=== PATIENT | female | born 1945 | race Caucasian/White ===

== ENCOUNTER 2024-02-25 15:50 | Inpatient (IN) | payer MEDICARE ==
[2024-02-25] MEDS: Ondansetron 4 MG/2 ML SDV IVPUSH ONE (16:53)
[2024-02-25] MEDS: Morphine 4 MG/ML Syringe IVPUSH ONE (16:55)
[2024-02-25 17:14] LABS: WHITE BLOOD CELL COUNT,WBC 12.9 K/uL (3.2-11.0)
[2024-02-25 17:15] LABS: HEMOGLOBIN 14.2 g/dL (11.2-15.5)
[2024-02-25 17:16] LABS: PLATELET COUNT,PLT 261 K/uL (130-375)
[2024-02-25 17:18] LABS: BAND ABSOLUTE MAN 0.26 K/uL; BAND PERCENT MAN 2 % (5-11); LYMPHOCYTES PERCENT MAN 24 % (24-44); MONOCYTES ABSOLUTE MAN 0.77 K/uL (0.20-0.90); MONOCYTES PERCENT MAN 6 % (2-6); NEUTROPHILS ABSOLUTE MAN 8.77 K/uL (1.0-7.6); SEG NEUTROPHILS PERCENT MAN 68 % (36-66)
[2024-02-25 17:19] LABS: A/G RATIO 0.7 (1.2-2.2); ALANINE AMINOTRANSFERASE,ALT 38 U/L (12-78); ALKALINE PHOSPHATASE 60 U/L (46-116); AMYLASE 85 U/L (25-115); ASPARTATE AMNIOTRANSFERASE,AST 21 U/L (15-37); BILIRUBIN TOTAL 0.2 mg/dL (0.2-1.0); CALCIUM 7.9 mg/dL (8.5-10.1); CARBON DIOXIDE,CO2 16 mmol/L (21-32); CHLORIDE,CL 99 mmol/L (100-108); ESTIMATED GFR 12 mL/min (>60); GLUCOSE RANDOM 116 mg/dL (74-106); MAGNESIUM 1.6 mg/dL (1.8-2.4); PROTEIN TOTAL,TP 7.5 g/dL (6.4-8.2); SODIUM,NA 136 mmol/L (140-148)
[2024-02-25 17:23] LABS: ANION GAP 23.3 mmol/L (5.0-14.0); BLOOD UREA NITROGEN,BUN 106 mg/dL (7-18); CREATININE 3.6 mg/dL (0.6-1.0); POTASSIUM,K 2.3 mmol/L (3.6-5.2)
[2024-02-25] MEDS: Sodium Chloride 0.9% 1,000 ML IV ONE (18:00)
[2024-02-25] MEDS: Magnesium Sulfate/Water 2 GM in Premix Bag 1 BAG IV ONE (18:01)
[2024-02-25] MEDS: Potassium Chloride 20 MEQ in Premix Bag 1 BAG IV ONE ×2 (18:01→19:51)
[2024-02-25 18:37] LABS: CORONAVIRUS COVID-19 NAA NEGATIVE (NEGATIVE); INFLUENZA A NAA NEGATIVE (NEGATIVE); INFLUENZA B NAA NEGATIVE (NEGATIVE); RESPIRATORY SYNCYTIAL VIR NAA NEGATIVE (NEGATIVE)
[2024-02-25] MEDS: Sodium Chloride 0.9% 1,000 ML IV SCH ×2 (19:53→22:49)
[2024-02-25] MEDS ORDERED: oxyCODONE 5 MG Tab PO PRN (20:09)
[2024-02-25] MEDS ORDERED: Acetaminophen 325 MG Tab PO PRN (20:09)
[2024-02-25] MEDS ORDERED: Morphine 2 MG/ML SYRINGE IVPUSH PRN (20:09)
[2024-02-25] MEDS ORDERED: Ondansetron 4 MG Tab.DIS PO PRN ×2 (20:09→22:30)
[2024-02-25] MEDS ORDERED: Naloxone 0.4 MG/ML SDV IVPUSH PRN (20:09)
[2024-02-25 20:34] LABS: APPEARANCE,URINE CLOUDY (CLEAR); BILIRUBIN,URINE SMALL (NEGATIVE); COLOR,URINE YELLOW (YELLOW); GLUCOSE,URINE NEGATIVE (NEGATIVE); KETONES,URINE NEGATIVE (NEGATIVE); LEUKOCYTE ESTERASE,URINE SMALL (NEGATIVE); NITRITE,URINE NEGATIVE (NEGATIVE); OCCULT BLOOD,URINE MODERATE (NEGATIVE); PH,URINE 5.5 (5.0-8.0); PROTEIN,URINE TRACE mg/dL (NEGATIVE); UROBILINOGEN,URINE 0.2 EU/dL (0.2-1.0)
[2024-02-25 20:42] LABS: AMORPHOUS SEDIMENT,URINE NOT SEEN; BACTERIA,URINE MANY; EPITHELIAL CELLS,URINE MODERATE; MUCUS,URINE MODERATE
[2024-02-25] MEDS: Insulin Lispro 100 Unit/ML 3 ML KwikPen SUBCUT SCH (21:03)
[2024-02-25] MEDS: Insulin Glargine,Human Rec. Analog 100 Units/ML 3 ML Pen SUBCUT SCH (21:13)
[2024-02-25] MEDS: Pantoprazole 40 MG Vial IV SCH (21:28)
[2024-02-25] MEDS: Potassium Chloride 10 MEQ Cap.ER PO SCH (21:28)
[2024-02-25] MEDS: Enoxaparin 30 MG/0.3 ML Syringe SUBCUT SCH (21:32)
[2024-02-25] MEDS: Dimethicone 20%/Zinc Oxide 25% 56 GM Spray Bottle TOP PRN (21:33)
[2024-02-25] MEDS ORDERED: Ondansetron 4 MG/2 ML SDV IV PRN (22:30)
[2024-02-25] MEDS: cefTRIAXone 1 GM in Sodium Chloride 0.9% 50 ML IV SCH (22:48)
[2024-02-25 23:51] LABS: MAGNESIUM 2.2 mg/dL (1.8-2.4)
[2024-02-25 23:52] LABS: POTASSIUM,K 2.8 mmol/L (3.6-5.2)
[2024-02-26] MEDS: Potassium Chloride 10 MEQ in Premix Bag 1 BAG IV SCH (00:01)
[2024-02-26 04:40] LABS: CALCIUM 7.3 mg/dL (8.5-10.1); CREATININE 2.7 mg/dL (0.6-1.0); EST CRCL DRUG DOSING (CG) 12.53 mL/min; MAGNESIUM 2.1 mg/dL (1.8-2.4); POTASSIUM,K 3.2 mmol/L (3.6-5.2)
[2024-02-26 05:21] LABS: ANION GAP 17.2 mmol/L (5.0-14.0)
[2024-02-26 05:25] LABS: HEMOGLOBIN 11.7 g/dL (11.2-15.5); WHITE BLOOD CELL COUNT,WBC 9.6 K/uL (3.2-11.0)
[2024-02-26 05:26] LABS: PLATELET COUNT,PLT 194 K/uL (130-375)
[2024-02-26 05:28] LABS: EOSINOPHILS ABSOLUTE MAN 0.19 K/uL (0.00-0.40); EOSINOPHILS PERCENT MAN 2 % (2-4); LYMPHOCYTES ABSOLUTE MAN 2.21 K/uL (0.8-3.3); LYMPHOCYTES PERCENT MAN 23 % (24-44); MONOCYTES ABSOLUTE MAN 0.67 K/uL (0.20-0.90); MONOCYTES PERCENT MAN 7 % (2-6); NEUTROPHILS ABSOLUTE MAN 6.53 K/uL (1.0-7.6); SEG NEUTROPHILS PERCENT MAN 68 % (36-66)
[2024-02-26] MEDS: amLODIPine 5 MG Tab PO SCH (09:11)
[2024-02-26] MEDS: Potassium Chloride 20 MEQ Tab.ER PO ONE ×2 (09:11→17:13)
[2024-02-26] MEDS: Levothyroxine 100 MCG Tab PO SCH (09:11)
[2024-02-26] MEDS: Loperamide 2 MG Cap PO PRN ×2 (10:14→18:41)
[2024-02-26 16:40] LABS: CALCIUM 7.8 mg/dL (8.5-10.1); CREATININE 2.1 mg/dL (0.6-1.0); EST CRCL DRUG DOSING (CG) 16.11 mL/min; POTASSIUM,K 3.5 mmol/L (3.6-5.2)
[2024-02-26 16:41] LABS: ANION GAP 15.5 mmol/L (5.0-14.0)
[2024-02-26] MEDS: Sodium Chloride 0.9% 1,000 ML IV SCH (17:15)
[2024-02-26] MEDS: Lactobacillus Rhamnosus GG (Probiotic) Cap PO SCH (21:16)
[2024-02-26] MEDS: Pantoprazole 40 MG Tab.CR PO SCH (21:17)
[2024-02-26] MEDS: Insulin Glargine,Human Rec. Analog 100 Units/ML 3 ML Pen SUBCUT SCH (21:17)
[2024-02-27 04:32] LABS: CALCIUM 7.9 mg/dL (8.5-10.1); CREATININE 1.4 mg/dL (0.6-1.0); EST CRCL DRUG DOSING (CG) 24.17 mL/min; POTASSIUM,K 3.7 mmol/L (3.6-5.2)
[2024-02-27 05:03] LABS: HEMOGLOBIN 11.4 g/dL (11.2-15.5); WHITE BLOOD CELL COUNT,WBC 10.8 K/uL (3.2-11.0)
[2024-02-27 05:06] LABS: ANION GAP 16.7 mmol/L (5.0-14.0)
[2024-02-28 05:44] LABS: CALCIUM 8.1 mg/dL (8.5-10.1); EST CRCL DRUG DOSING (CG) 33.84 mL/min; POTASSIUM,K 3.3 mmol/L (3.6-5.2)
[2024-02-28 06:00] LABS: ANION GAP 13.3 mmol/L (5.0-14.0)
[2024-02-28] MEDS: Potassium Chloride 20 MEQ Tab.ER PO ONE (08:41)
== END 2024-02-28 13:15 | disposition home or self-care (01) | DRG 392 ==
LOC: JP.ED 15:50 → JP.MS 19:18
PROVIDERS: ADMIT Internal Medicine; ATTEND Internal Medicine
DX: K52.9 Noninfective gastroenteritis and colitis, unspecified (principal); E87.1 Hypo-osmolality and hyponatremia; N17.9 Acute kidney failure, unspecified; E87.20 Acidosis, unspecified; Z66 Do not resuscitate; E86.0 Dehydration; E78.00 Pure hypercholesterolemia, unspecified; E03.9 Hypothyroidism, unspecified; E66.9 Obesity, unspecified; E87.6 Hypokalemia; N30.90 Cystitis, unspecified without hematuria; Z88.8 Allergy status to other drugs, medicaments and biological substances; Z79.82 Long term (current) use of aspirin; Z68.37 Body mass index [BMI] 37.0-37.9, adult; Z79.4 Long term (current) use of insulin; Z79.84 Long term (current) use of oral hypoglycemic drugs; Z79.890 Hormone replacement therapy; Z90.49 Acquired absence of other specified parts of digestive tract; Z79.899 Other long term (current) drug therapy; B96.1 Klebsiella pneumoniae [K. pneumoniae] as the cause of diseases classified elsewhere; I12.9 Hypertensive chronic kidney disease with stage 1 through stage 4 chronic kidney disease, or unspecified chronic kidney disease; E11.22 Type 2 diabetes mellitus with diabetic chronic kidney disease; N18.2 Chronic kidney disease, stage 2 (mild); E83.42 Hypomagnesemia
CPT/HCPCS: 0241U; 36415; 80048; 80053; 81001; 82150; 82947; 83690; 83735; 84132; 85025; 85027; 87086; 87088; 87186; 87493; 93005; 96365; 96368; 96375; 99222; 99232; 99238; 99285; 93010; A9270-GY; C9113; J0696; J1815; J1815-GY; J2270; J2405; J3475; J3480; J3490; J7030